=== PATIENT | female | born 1975 | race Caucasian/White ===

== ENCOUNTER 2023-10-07 11:26 | Day surgery (SDC) | payer MEDICAID ==
[~2023-10-07] VITALS: Ht 160 cm; Wt 63.0 kg
[2023-10-07] MEDS ORDERED: fentaNYL citrate 0.05 MG/ML VIAL ONE (12:25)
[2023-10-07] MEDS: fentaNYL citrate 0.05 MG/ML VIAL IVP ONE (12:44)
[2023-10-07] MEDS: LIDOCAINE 2% 100 MG/5 ML UJET TP ONE (12:55)
== END 2023-10-07 14:10 | disposition home or self-care (01) ==
LOC: MDS 11:26 → MMU 11:32 → MDS 14:10
PROVIDERS: ATTEND Internal Medicine Gastroenterology
DX: K59.00 Constipation, unspecified (principal); R10.30 Lower abdominal pain, unspecified; K57.30 Diverticulosis of large intestine without perforation or abscess without bleeding; E78.00 Pure hypercholesterolemia, unspecified; Z79.899 Other long term (current) drug therapy
CPT/HCPCS: 45380; J3010